=== PATIENT | male | born 1985 | race Caucasian/White ===

== ENCOUNTER 2021-02-22 07:41 | Outpatient (CLI) | payer BC ==
[2021-02-22 19:56] LABS: SARS-CoV-2 PCR by NAA Not Detected (NotDetected)
== END 2021-02-22 07:42 | disposition home or self-care (01) ==
LOC: CSHLAB 07:41
PROVIDERS: ATTEND Internal Medicine
DX: Z20.822 Contact with and (suspected) exposure to COVID-19 (principal)
CPT/HCPCS: U0003; U0005

== ENCOUNTER 2021-02-27 09:29 | Outpatient (CLI) | payer BC | END 2021-02-27 09:30 | disposition home or self-care (01) | LOC: CSHCP 09:29 | PROVIDERS: ATTEND Internal Medicine | DX: J45.40 Moderate persistent asthma, uncomplicated (principal) | CPT/HCPCS: 71046; 94060; 94726; 94729; 94760 ==